=== PATIENT | male | born 1970 | race American Indian/Alaskan Native ===

== ENCOUNTER 2018-06-15 10:54 | Emergency (ER) | payer OTHER ==
[2018-06-15 11:00] VITALS: BP 151/91
--- NOTE | 2018-06-15 13:29 | Emergency Department Report ---
ED Extremity Problem HPI - General Chief complaint: Extremity Problem,Nontraumatic Stated complaint: TINGLING/STIFFNESS ON THE RT SIDE Time Seen by Provider: 06/15/18 12:46 Source: patient Mode of arrival: Ambulatory Limitations: No Limitations - History of Present Illness Initial comments: 47-year-old male comes to the emergency room for complaint of tingling to the right thigh for 3 weeks. Patient states that he is able to do everything with no limitations. Patient denies any injury. Patient reports that the discomfort is more like burning numbness and tingling. Patient does admit that his job entails him to walk a lot. Patient has a past medical history of C4-C5 surgical fusion. Patient currently takes no medications on a daily basis and has no known drug allergies. MD Complaint: extremity pain -: week(s) (3) Location: right Severity scale (0 -10): 8 Quality: burning Consistency: intermittent Improves with: medication, rest Worsens with: walking - Related Data Previous Rx's Medication Instructions Recorded Last Taken Type Naproxen [Naprosyn] 500 mg PO BID #20 tablet 06/15/18 Unknown Rx Allergies Allergy/AdvReac Type Severity Reaction Status Date / Time No Known Allergies Allergy Unverified 06/15/18 10:57 ED Review of Systems ROS: Stated complaint: TINGLING/STIFFNESS ON THE RT SIDE Other details as noted in HPI Comment: All other systems reviewed and negative Constitutional: denies: chills, fever Eyes: denies: eye pain, eye discharge, vision change ENT: denies: ear pain, throat pain Respiratory: denies: cough, shortness of breath, wheezing Cardiovascular: denies: chest pain, palpitations Endocrine: no symptoms reported Gastrointestinal: denies: abdominal pain, nausea, diarrhea Genitourinary: denies: urgency, dysuria Musculoskeletal: denies: back pain, joint swelling, arthralgia Skin: denies: rash, lesions Neurological: denies: headache, weakness, paresthesias Psychiatric: denies: anxiety, depression Hematological/Lymphatic: denies: easy bleeding, easy bruising ED Past Medical Hx - Past Medical History Previous Medical History?: No - Surgical History Past Surgical History?: Yes Additional Surgical History: C4-C5 surgery - Social History Smoking Status: Never Smoker Substance Use Type: None - Medications Home Medications: Home Medications Medication Instructions Recorded Confirmed Last Taken Type Naproxen [Naprosyn] 500 mg PO BID #20 tablet 06/15/18 Unknown Rx ED Physical Exam - General Limitations: No Limitations General appearance: alert, in no apparent distress - Head Head exam: Present: atraumatic, normocephalic - Eye Eye exam: Present: normal appearance - ENT ENT exam: Present: mucous membranes moist - Neck Neck exam: Present: normal inspection - Respiratory Respiratory exam: Present: normal lung sounds bilaterally. Absent: respiratory distress - GI/Abdominal GI/Abdominal exam: Present: soft, normal bowel sounds - Extremities Exam Extremities exam: Present: normal inspection - Expanded Lower Extremity Exam Right Hip exam: Present: full ROM. Absent: tenderness Upper Leg exam: Present: full ROM, tenderness. Absent: swelling Knee exam: Present: normal inspection, full ROM, tenderness. Absent: swelling - Back Exam Back exam: Present: normal inspection - Neurological Exam Neurological exam: Present: alert, oriented X3, normal gait - Psychiatric Psychiatric exam: Present: normal affect, normal mood - Skin Skin exam: Present: warm, dry, intact, normal color. Absent: rash ED Course Vital Signs 06/15/18 10:59 Temperature 98 F Pulse Rate 78 Respiratory 16 Rate Blood Pressure 151/91 O2 Sat by Pulse 98 Oximetry ED Medical Decision Making - Medical Decision Making Patient has been evaluated by this provider [facility]. Patient comes in with tingling to the right thigh. With no trauma. Discussed patient he needs to follow up with her primary care provider. Also recommend patient to take naproxen 500 mg by mouth twice a day. Critical care attestation.: If time is entered above; I have spent that time in minutes in the direct care of this critically ill patient, excluding procedure time. ED Disposition Clinical Impression: Numbness of right anterior thigh Disposition: DC-01 TO HOME OR SELFCARE Is pt being admited?: No Does the pt Need Aspirin: No Condition: Stable Instructions: Paresthesia (ED) Additional Instructions: Please is take pain medication as needed. Prescriptions: Naproxen [Naprosyn] 500 mg PO BID #20 tablet Referrals: JAVON NEVAREZ MD [Staff Physician] - 3-5 Days [facility] [Provider Group] - 3-5 Days
== END 2018-06-15 13:30 | disposition home or self-care (01) ==
LOC: ED 10:54
DX: R20.2 Paresthesia of skin (principal); R20.0 Anesthesia of skin; Z98.890 Other specified postprocedural states

== ENCOUNTER 2021-01-19 06:42 | Day surgery (SDC) | payer BC, OTHER ==
[2021-01-19] MEDS ORDERED: ASPIRIN EC 325 MG TAB PO NR (07:14)
[2021-01-19 07:56] LABS: Basophils % (Auto) 0.6 % (0.0-1.8); Eosinophils # (Auto) 0.1 K/mm3 (0.0-0.4); Hematocrit 41.4 % (35.5-45.6); Hemoglobin 12.8 gm/dl (11.8-15.2); Lymphocytes # (Auto) 2.6 K/mm3 (1.2-5.4); Lymphocytes % (Auto) 47.4 % (13.4-35.0); Mean Corpuscular HGB Conc 31 % (32-34); Mean Corpuscular Volume 75 fl (84-94); Monocytes # (Auto) 0.4 K/mm3 (0.0-0.8); Monocytes % (Auto) 7.8 % (0.0-7.3); Platelet Count 139 K/mm3 (140-440); Red Blood Count 5.53 M/mm3 (3.65-5.03); Red Cell Distribution Width 14.5 % (13.2-15.2)
[2021-01-19 08:07] LABS: INR 0.88 (0.87-1.13)
[2021-01-19 08:14] LABS: BUN/Creatinine Ratio 25; Blood Urea Nitrogen 20 mg/dL (9-20); Calcium 8.6 mg/dL (8.4-10.2); Hemolysis Index 8
[2021-01-19] MEDS ORDERED: HEPARIN/NS 5000 UNIT/500ML 1,000 ML IR ONE (08:16)
[2021-01-19] MEDS ORDERED: NITROGLYCERIN SYRINGE 3 ML ONE (08:17)
[2021-01-19] MEDS: MIDAZOLAM 2 MG/2 ML INJ ONE ×2 (08:36→09:30)
[2021-01-19] MEDS: fentaNYL 100 MCG/2 ML INJ ONE ×2 (08:37→09:30)
[2021-01-19] MEDS: VERAPAMIL 5 MG/2 ML INJ ONE ×2 (08:37→09:35)
[2021-01-19] MEDS: LIDOCAINE (2%) 20 MG/1 ML VIAL 20 ML MDV INFILTRATI ONE ×2 (08:37→09:34)
[2021-01-19] MEDS: SODIUM CHLORIDE 0.9% 500 ML 500 ML IV SCH ×2 (08:38→09:08)
[2021-01-19] MEDS: HEPARIN 10,000 UNITS/10 ML VIAL ONE ×2 (08:38→09:35)
[2021-01-19] MEDS ORDERED: ATROPINE 0.1% (1 MG/10 ML) CARDIAC SYRINGE ONE (09:26)
--- NOTE | 2021-01-19 10:28 | Cardiac Catherization Report ---
DATE OF SERVICE: 01/19/2021 INDICATIONS: The patient is a 50-year-old gentleman with history of palpitations while mowing the lawn and subsequently underwent a stress nuclear imaging and EKG was positive, but nuclear scan did not show any ischemia. However, continues to have chest pain. The patient has a history of hypertension. The echocardiogram showed normal left ventricular systolic function 55-60%. Because of persistent chest pain, he is scheduled for cardiac catheterization for definitive diagnosis and treatment. The patient is aware of the procedure, potential complications and alternatives of therapy available. DESCRIPTION OF PROCEDURE: The patient was brought to the catheterization laboratory in a fasting condition and the patient was evaluated for moderate sedation and was felt to be appropriate candidate for moderate sedation. Received IV Versed and fentanyl. Subsequently, the patient was monitored with pulse oximetry and EKG monitoring. The patient was prepared in standard fashion and local anesthesia was given in the right wrist area. Right radial artery was accessed using 21-gauge arterial puncture needle. A 5-[place] slender sheath was introduced. A 6-[place] multipurpose catheter was used to obtain the angiograms of the left ventricle done in HARRY projection followed by angiograms of the right coronary artery and angiograms of the left coronary artery in multiple views. At the end of the procedure, catheter and sheath were removed and good hemostasis was achieved. Angiography showed right coronary to be dominant vessel, arising normally from right coronary cusp, angiographically smooth and normal. Left coronary artery arises normally from left coronary cusp. The left main is very short, left main, LAD and its branches are normal. Circumflex artery showed very mild 5-10% smooth eccentric lesion, the proximal focal lesion. Rest of the circumflex artery without significant disease. Collaterals none. HEMODYNAMICS: 1. Opening aortic pressure 138/78. Left ventricular pressure 134/15. No gradient across the aortic valve. Estimated ejection fraction 55%. 2. Left ventriculogram done in HARRY projection showed normal sized left ventricle with normal contractility. 3. The patient's moderate sedation starting at 9:28 a.m. and moderate sedation ended at 9:40 a.m. At the end of the procedure, the patient is breathing normally and communicating normally without any focal deficits. The patient was transferred to the room in stable condition. FINAL IMPRESSION: Normal-sized left ventricle with normal contractility, end-diastolic pressure mildly elevated. Very minimal coronary artery disease involving the proximal circumflex artery. Rest of the coronaries without significant disease. Considering the above angiographic findings, we will continue risk factor modification. No untoward complications were noted. Findings were explained to the patient. TID: [id number] RECEIPT: [id number] ANIAY/NANCY RODRÍGUEZ
--- NOTE | 2021-01-19 12:12 | Short Stay Summary ---
Short Stay Documentation Date of service: 01/19/21 - History H&P: obtained from office - Allergies and Medications Current Medications: Allergies No Known Allergies Allergy (Unverified 06/15/18 10:57) Home Medications Medication Instructions Recorded Confirmed Last Taken Type Metoprolol Xl [Metoprolol 25 mg PO QDAY 01/19/21 01/19/21 01/18/21 History SUCCINATE ER TAB] Active Medications Sodium Chloride (Nacl 0.9% 500 Ml) 500 mls @ 50 mls/hr IV DIRECT HELEN Stop: 01/19/21 17:59 Last Admin: 01/19/21 09:08 Dose: 50 mls/hr Documented by: - Physical exam Integumentary: other (dressing, clean dry, and intact. No bleeding or hematoma noted) - Brief post op/procedure progress note Date of procedure: 01/19/21 Pre-op diagnosis: chest pain Post-op diagnosis: other (normal coronnary arteries) Anesthesia: local Estimated blood loss: minimal - Hospital course Hospital course: Patient underwent LHC through right radial which showed normal coronaries. Patient tolerated procedure well - Disposition Condition at discharge: Good Disposition: 01 HOME / SELF CARE / HOMELESS Short Stay Discharge Plan Activity: advance as tolerated Diet: low fat, low cholesterol, low salt Wound: keep clean and dry, per your surgeon's advice Additional Instructions: Patient should follow-up with their primary rfp writer in 1 to 2 weeks after discharge. Follow up with: CLEMENT CASTANO MD [Primary Care Provider] - 7 Days Forms: CardCath PCI D/C Instructions
[2021-01-19 13:01] VITALS: BP 132/77
--- NOTE | 2021-01-20 12:11 | Electrocardiograph Report ---
[facility] Test Date: 2021-01-19 Test Time: 07:33:21 Pat Name: SIMONE MARTINEZ Department: Room: Gender: M Telemarketing Supervisor: YANELIS : [id number] Requested By: ABISAI TORRES Order Number: [id number] Reading MD: Abisai Torres Measurements Intervals [place] Rate: 54 P: 23 MN: 167 QRS: 57 QRSD: 81 T: 1 QT: 434 QTc: 414 Interpretive Statements Sinus rhythmjavascript:perform('study_confirm'); Probable left ventricular hypertrophy ST elevation, consider anterior injury/early repolarization. No previous ECG available for comparison Electronically Signed On 01-20-2021 12:10:56 EST by Abisai Torres
== END 2021-01-19 13:30 | disposition home or self-care (01) ==
LOC: CATHLABREC 06:42
PROVIDERS: ATTEND Internal Medicine
DX: R94.39 Abnormal result of other cardiovascular function study (principal); R07.89 Other chest pain; I25.10 Atherosclerotic heart disease of native coronary artery without angina pectoris; I10 Essential (primary) hypertension; E78.5 Hyperlipidemia, unspecified; Z87.891 Personal history of nicotine dependence; Z79.899 Other long term (current) drug therapy; Z98.890 Other specified postprocedural states
CPT/HCPCS: 36415; 80048; 85025; 85610; 85730; 93005; 93458; 99156; C1894; J1644; J1815; J2250; J3010; J3490; J7040; J0461; Q9967

== ENCOUNTER 2021-07-24 08:56 | Outpatient (CLI) | payer OTHER ==
--- NOTE | 2021-07-24 10:05 | XRay Report ---
CERVICAL SPINE 3 VIEWS INDICATION: LEFT SHOULDER PAIN. Chronic neck and back pain COMPARISON: None. IMPRESSION: Normal alignment. There is been previous anterior fusion at C5-6 with bone fusion of th e C5-6 disc space. 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 The remaining levels are unremarkable. The facet joints are within normal limits. No acute osseous or soft tissue abnormality . LUMBOSACRAL SPINE 3 VIEWS INDICATION: Chronic back pain. COMPARISON: None. IMPRESSION: Normal alignment. No significant discogenic DJD or facet arthropathy. No acute osseous or soft tissue abnormality. LEFT SHOULDER 3 VIEWS INDICATION: LEFT SHOULDER PAIN. COMPARISON: None. IMPRESSION: No acute osseous or soft tissue abnormality. No significant DJD. Signer Name: Aman Sutherland Jr, MD Signed: 07/24/2021 10:00 AM Workstation Name: [id number]
== END 2021-07-24 08:57 | disposition home or self-care (01) ==
LOC: XRAY 08:56
PROVIDERS: ATTEND Internal Medicine
DX: M47.812 Spondylosis without myelopathy or radiculopathy, cervical region (principal); M25.512 Pain in left shoulder; M54.50 Low back pain, unspecified
CPT/HCPCS: 72040; 72100